=== PATIENT | male | born 1985 | race Two or more races ===

== ENCOUNTER 2017-08-03 01:42 | Emergency (ER) | payer SELFPAY ==
[2017-08-03 01:48] VITALS: BP 158/97; PULSE 107; RESP 20; TEMP 99.5; O2SAT 94
--- NOTE | 2017-08-03 04:31 | EDPHY ---
H & P Stated Complaint: throat swollen Time Seen by Provider: 08/03/17 02:50 HPI/ROS: History obtained using Hungarian language line credit collections specialist. HPI The patient presents with sore throat which has been present for the last several hours. He was drinking beer and believes he swallowed the tab from the aluminum can while he was drinking it. He had acute onset of sore throat and foreign body sensation. He has not had any vomiting, has not had any difficulty tolerating his secretions. The pain has been constant, is moderate in severity, does not radiate and is in the middle of his neck. REVIEW OF SYSTEMS Constitutional: No fever, no chills. Eyes: No discharge. ENT: Positive for sore throat. Cardiovascular: No chest pain, no palpitations. Respiratory: No cough, no shortness of breath. Gastrointestinal: No abdominal pain, no vomiting. Genitourinary: No hematuria. Musculoskeletal: No back pain. Skin: No rashes. Neurological: No headache. PMHx: Healthy Soc Hx: Alcohol drinker PHYSICAL General Appearance: Alert, no distress Eyes: Pupils equal and round no pallor or injection ENT, Mouth: Mucous membranes moist, posterior pharynx is clear without erythema or exudate, neck has full range of motion with no tenderness Respiratory: There are no retractions, lungs are clear to auscultation Cardiovascular: Regular rate and rhythm Gastrointestinal: Abdomen is soft and non-tender, no masses, bowel sounds normal Neurological: A&O, moves all extremities Skin: Warm and dry, no rashes Musculoskeletal: Neck is supple non tender Extremities: symmetrical, full range of motion Psychiatric: Patient is oriented X 3, there is no agitation Source: Patient, Director Of Community Services Exam Limitations: No limitations - Medical/Surgical History Hx Asthma: No Hx Chronic Respiratory Disease: No Hx Diabetes: No Hx Cardiac Disease: No Hx Renal Disease: No Hx Cirrhosis: No Hx Alcoholism: No Hx HIV/AIDS: No Hx Splenectomy or Spleen Trauma: No - Social History Smoking Status: Never smoked Constitutional: Initial Vital Signs Temperature (C) 37.5 C 08/03/17 01:47 Heart Rate 107 H 08/03/17 01:47 Respiratory Rate 20 08/03/17 01:47 Blood Pressure 158/97 H 08/03/17 01:47 O2 Sat (%) 94 08/03/17 01:47 O2 Delivery Mode Room Air Allergies/Adverse Reactions: No Known Allergies Allergy (Unverified 08/03/17 01:46) Home Medications: Medication Instructions Recorded NK [No Known Home Meds] 08/03/17 Medical Decision Making - Diagnostics Imaging Results: CT neck without contrast demonstrates no foreign body, discussed with the radiologist it application architect. Imaging: Discussed imaging studies w/ stoneworking belt sander Radiologist Differential Diagnosis: This is a 31-year-old male who presents with sore throat after swallowing a metal tab from a can of beer he believes. He does not have any difficulty with his secretions, but is visibly uncomfortable. I cannot visualize any foreign body in his throat. Lateral soft tissue of neck was obtained which did not demonstrate any abnormalities or foreign body. The patient continued to complain of severe discomfort and was convinced that the is foreign body was present. Thus, CT scan of neck was obtained which demonstrated no foreign body. He may have sustained an abrasion to his pharynx or upper esophagus during this episode, I doubt any serious injury. The patient has been able to tolerate fluids in the ER without difficulty. He will be discharged home with referral to ENT. Departure - Departure Disposition: Home, Routine, Self-Care Clinical Impression: Foreign body sensation in throat, Thyroid nodule Condition: Good Instructions: Foreign Body in Pharynx (ED) Additional Instructions: Please make sure to drink plenty of fluids. If you're still having pain, I have given you the follow-up information for [facility] Throat and you should call them in the morning for an appointment. Return to the emergency room if your worse in any way. Referrals: [facility],. [Clinic] - As per Instructions Sandoval Cole PA [Physician Air Route Traffic Controller] - As per Instructions Print Language: Hungarian
== END 2017-08-03 04:39 | disposition home or self-care (01) ==
DX: R09.89 Other specified symptoms and signs involving the circulatory and respiratory systems (principal); E04.1 Nontoxic single thyroid nodule